=== PATIENT | female | born 1960 | race Caucasian/White ===

== ENCOUNTER 2016-11-28 09:47 | Emergency (ER) | payer OTHER ==
--- NOTE | 2016-11-28 10:41 | EDPHY ---
General Narrative: CHIEF COMPLAINT: Neck pain HISTORY OF PRESENT ILLNESS: Patient complains of intermittent headache and neck pain. This is point tenderness that she can reproduce with certain movements. There is no dizziness or nausea. Visual changes. The episodes were very brief, originally starting September. They have become more frequent. It is located in the same spot each time. The patient is concerned that she has "instability at C2 or C1." She has no incontinence of bowel or bladder. She has no numbness, slurred speech, facial droop, unilateral extremity complaints. She has no head trauma or injury. No ongoing or persistent headache. No sudden onset of generalized headache. No fever or chills. No neck pain or stiffness. No other associated complaints. She attempted to contact her established neurosurgeon for ongoing cervical spine arthritis but was unable to make an appointment in the near future. No other associated complaints or modifying factors. REVIEW OF SYSTEMS: Ten systems reviewed and are negative unless otherwise noted in the HPI PAST MEDICAL HISTORY: Cervical spine arthritis. Previous cervical spine compression fracture 20 years ago PAST SURGICAL HISTORY: Reviewed. None pertinent today's visit SOCIAL HISTORY: Nonsmoker. Lives and works here locally in [facility] FAMILY HISTORY: Noncontributory EXAMINATION General Appearance: Alert, no distress Head: normocephalic, atraumatic Eyes: Pupils equal and round, no conjunctival pallor or injection ENT, Mouth: Mucous membranes moist. Airway patent Neck: Normal inspection, supple, non-tender. Painless range of motion all planes. No crepitus, step-off or deformity. Respiratory: No retractions or distress Cardiovascular: Regular rate. Pulses intact distally Back: non-tender, no bony abnormalities Neurological: GCS 15. A&O, nonfocal, normal steady gait. Strength is symmetric in all 4 limbs. No pronator drift. No dysmetria. Normal heel walk. Normal toe walk. Normal mental status. Skin: Warm and dry, no rash Extremities: Nontender, no pedal edema Psychiatric: Mood and affect normal DIFFERENTIAL DIAGNOSES: Including but not limited to cervical spine arthritis, spondylolisthesis, spondylosis, radicular pain, discopathy MDM: 10:30 a.m. Intermittent complaints of headache and neck pain, with the patient concerning that she has instability of the neck. Her neuro exam is within normal limits with no deficits. There is no radicular pain. No sensory complaints. No evidence of acute cord compression or cauda equina. She is fully ambulatory with steady gait. She has normal mental status. Her request is simply for a soft collar in to see her neurosurgeon. I do not feel she warrants CT scan or CT at this time. I do not feel she warrants emergent MRI at this time. She is in agreement with this. We discussed soft collar at her request for comfort and follow up with her established neurosurgeon. Case management will attempt to help expedite a outpatient follow up with her established neurosurgeon Dr. Gore. She is comfortable this plan. We discussed return to emergency department precautions for any motor sensory changes. - History Smoking Status: Never smoked - Objective Vital Signs: Initial Vital Signs Temperature (C) 98.6 F 11/28/16 09:49 Heart Rate 74 11/28/16 09:49 Respiratory Rate 18 11/28/16 09:49 Blood Pressure 119/60 11/28/16 09:49 O2 Sat (%) 98 11/28/16 09:49 O2 Delivery Mode Room Air Allergies/Adverse Reactions: Sulfa (Sulfonamide Antibiotics) Allergy (Mild, Verified 11/28/16 09:53) headache all synthetic narcotics Allergy (Severe, Uncoded 04/05/15 18:26) resp distress Home Medications: Medication Instructions Recorded NK [No Known Home Meds] 11/28/16 Departure - Departure Disposition: Home, Routine, Self-Care Clinical Impression: Neck pain Headache Qualifiers: Headache type: unspecified Headache chronicity pattern: episodic headache Intractability: not intractable Qualified Code(s): R51 - Headache Condition: Good Instructions: Soft Cervical Collar (ED), Neck Pain (ED) Additional Instructions: 1. Soft collar in place a your discretion for comfort 2. Return to emergency department for any symptoms as discussed 3. Follow up with established neurosurgeon Referrals: Emilia Capellan MD [Primary Care Provider] - As per Instructions Jennifer Gore [Medical Doctor] - As per Instructions
[2016-11-28 11:09] VITALS: BP 108/67; PULSE 70; RESP 16; TEMP 98.2; O2SAT 95
== END 2016-11-28 11:10 | disposition home or self-care (01) ==
DX: M54.2 Cervicalgia (principal); R51 Headache